=== PATIENT | male | born 1985 | race Caucasian/White ===

== ENCOUNTER 2016-11-13 05:05 | Emergency (ER) | payer OTHER ==
[~2016-11-13] VITALS: Ht 175.3 cm; Wt 92.0 kg
[~2016-11-13 05:05] MED LIST: HYDR-906 PO; PHEN-538 PO; TAMS-14 PO
[2016-11-13 05:09] VITALS: Ht 175.3 cm; Wt 92.0 kg
--- NOTE | 2016-11-13 06:30 | ERD ---
ER Documentation Chief Complaint Date/Time DATE: 11/13/16 TIME: 06:27 Chief Complaint RLQ ABDOMINAL/GROIN PAIN TODAY.NO N/V/D. SAYS RT TESTICLE HIGHER THAN USUAL HPI Patient is a 31-year-old male with past medical history of kidney stones who presents to the emergency department with right lower quadrant abdominal pain which started approximately 3 hours ago. Patient states that the pain awakened him from his sleep. Patient describes the pain to be sharp and constant. Patient states his current pain level is a 6 out of 10. Patient denies any nausea, vomiting, diarrhea, or fever. Patient does admit to some chills. Patient denies taking any medication for his current symptoms. Patient also states that he noticed that his right testicle is higher than usual. Patient states he noticed this yesterday. Patient states that he did have some pain yesterday however it is now resolved. Patient denies any swelling. Patient denies any penile discharge. Patient's last bowel movement was yesterday at 9 PM.Patient denies any pain with urination or blood in his urine. Patient denies any recent travel. No sick contacts. ROS All systems reviewed and are negative except as per history of present illness. Medications Home Meds Active Scripts Tamsulosin Hcl* (Flomax*) 0.4 Mg Cap.er.24h, 0.4 MG PO BID, #30 CAP Prov:NILDA MOORE PA-C 11/13/16 Ibuprofen* (Motrin*) 600 Mg Tab, 600 MG PO Q6, #30 TAB Prov:NILDA MOORE PA-C 11/13/16 Hydrocodone/Acetaminophen ([place] 5-325 Tablet) 1 Each Tablet, 1 TAB PO Q6H Y for PAIN, #10 TAB Prov:NILDA MOORE PA-C 11/13/16 Tamsulosin Hcl* (Flomax*) 0.4 Mg Cap.er.24h, 0.4 MG PO QPM, #30 CAP Prov:OMAR STEVENSON NP 05/04/16 Phenazopyridine Hcl* (Pyridium*) 200 Mg Tab, 200 MG PO TID Y for URINARY PAIN, # 6 TAB Prov:OMAR STEVENSON NP 05/04/16 Hydrocodone/Acetaminophen ([place] 5-325 Tablet) 1 Each Tablet, 1 TAB PO Q6H Y for PAIN, #20 TAB Prov:OMAR STEVENSON LONG LINES OPERATOR 05/04/16 Reported Medications [none] Unknown Strength No Conflict Check 05/04/16 Allergies Allergies: Coded Allergies: No Known Allergy (Unverified , 05/03/16) PMhx/Soc Medical and Surgical Hx: pt denies Medical Hx, pt denies Surgical Hx Hx Alcohol Use: Yes (occasionally) Hx Substance Use: No Hx Tobacco Use: No Smoking Status: Former smoker Physical Exam Vitals Vital Signs Date Time Temp Pulse Resp B/P Pulse Ox O2 Delivery O2 Flow Rate FiO2 11/13/16 05:09 96.6 78 16 166/91 99 Physical Exam GENERAL: Well-developed, well-nourished male. Appears in no acute distress. HEAD: Normocephalic, atraumatic. EYES: Pupils are equally reactive bilaterally. EOMs grossly intact. No conjunctival erythema. ENT: Moist mucous membranes. No uvula deviation. No kissing tonsils. NECK: Supple. No meningismus. Normal range of motion of the neck. LUNG: Clear to auscultation bilaterally. No rhonchi, wheezing, rales or coarse breath sounds. HEART: Regular rate and rhythm. No murmurs, rubs or gallops. ABDOMEN: No scars, ecchymosis or rashes noted. Soft and nondistended. Tender to palpation in the right lower quadrant. Positive bowel sounds in all four quadrants. No rebound tenderness, no guarding. (-) McBurney's point tenderness. No CVA tenderness. BACK: No midline tenderness. EXTREMITIES: Equal pulses bilaterally. No peripheral clubbing, cyanosis or edema. No unilateral leg swelling. NEUROLOGIC: Alert and oriented. Moving all four extremities without any difficulty. Normal speech. Steady gait. SKIN: Normal color. Warm and dry. No rashes or lesions. Result Diagram: 11/13/1662911/13/1630 Results 24 hrs Laboratory Tests Test 11/13/16 06:30 11/13/16 07:51 Alanine Aminotransferase (ALT/SGPT) 94IU/L Albumin 4.1g/dl Albumin/Globulin Ratio 1.41 Alkaline Phosphatase 97IU/L Anion Gap 15 Aspartate Amino Transf (AST/SGOT) 47IU/L Basophils # 0.110^3/ul Basophils % 0.8% Blood Urea Nitrogen 14mg/dl Calcium Level 8.8mg/dl Carbon Dioxide Level 28mmol/L Chloride Level 107mmol/L Creatinine 0.82mg/dl Direct Bilirubin 0.00mg/dl Eosinophils # 0.410^3/ul Eosinophils % 5.1% Globulin 2.90g/dl Glucose Level 88mg/dl Hematocrit 43.7% Hemoglobin 15.4g/dl Indirect Bilirubin 0.3mg/dl Lipase 107U/L Lymphocytes # 2.710^3/ul Lymphocytes % 35.7% Mean Corpuscular Hemoglobin 32.0pg Mean Corpuscular Hemoglobin Concent 35.2g/dl Mean Corpuscular Volume 90.7fl Mean Platelet Volume 8.7fl Monocytes # 0.610^3/ul Monocytes % 8.1% Neutrophils # 3.810^3/ul Neutrophils % 50.0% Nucleated Red Blood Cells # 0.010^3/ul Nucleated Red Blood Cells % 0.0/100WBC Platelet Count 32290^3/UL Potassium Level 4.0mmol/L Red Blood Count 4.8210^6/ul Red Cell Distribution Width 12.0% Sodium Level 146mmol/L Total Bilirubin 0.3mg/dl Total Protein 7.0g/dl White Blood Count 7.710^3/ul Bedside Urine Blood 3+ Bedside Urine Glucose (UA) Negative Bedside Urine Ketones (LAB) Negative Bedside Urine Leukocyte Esterase (L Negative Bedside Urine Nitrite (LAB) Negative Bedside Urine Protein (LAB) Trace Bedside Urine pH (LAB) 5.5 Procedures/MDM ED COURSE: The patient was stable throughout ED course. I kept the patient and/or family informed of laboratory and diagnostic imaging results throughout the ED course. . DIAGNOSTIC IMAGING: Read by radiologist. DIAGNOSTIC IMAGING REPORT Patient: DEVORA WATTS : 1985 Age: 31 Sex: M MR #: [id number] DOS: 11/13/16 0617 Ordering MD: NILDA MOORE PA-C Location: E Room/Bed: PROCEDURE: CT Abdomen and Pelvis without contrast. CLINICAL INDICATION: Abdominal pain. TECHNIQUE: Routine axial tomographic images of the abdomen and pelvis were obtained from the domes the diaphragm to the symphysis pubis. The patient was scanned withoutoral or intravenous contrast. Coronal and sagittal reformatted images were obtained from the axial source images. Images were reviewed on a high-resolution PACS workstation. The total exam CTDI equals 16.87 mGy and the total exam DLP equals 1093.30 mGy-cm. One or more of the following dose reduction techniques were used: Automated exposure control, adjustment of the mA and / or kV according to patient size, or use of iterative reconstruction technique. COMPARISON: CT abdomen and pelvis dated 05/04/2016 FINDINGS: The visualized portions of the lung bases are clear. Evaluation of the intra-abdominal solid organs is somewhat limited on this noncontrast examination. The liver appears normal in size. The liver parenchyma demonstrates diffuse hypoattenuation. There is no intra or extrahepatic biliary dilatation. The gallbladder is unremarkable by CT criteria. The spleen , pancreas, and adrenal glands are unremarkable. The kidneys are symmetric in size. There is mild right hydronephrosis and proximal hydroureter. There is a 3 mm calculus within the right mid ureter approximately 6 cm distal to the right UPJ at the level of the superior endplate of the L4 vertebral body. This measures 240 HU. There are multiple additional punctate bilateral renal calculi. The urinary bladder is grossly unremarkable. The bowel demonstrates normal course and caliber. There is no evidence of bowel obstruction. The appendix is normal in appearance. The pelvic organs are grossly unremarkable. No intraperitoneal free fluid, free air, or abscess is identified. No retroperitoneal, mesenteric, or inguinal lymphadenopathy is identified. The aorta is normal in caliber. The osseous structures are unremarkable. No significant subcutaneous soft tissue abnormalities are seen. IMPRESSION: 1. Obstructing 3 mm calculus within the right mid ureter, 6 cm distal to the right UPJ at the level of the superior endplate of the L4 vertebral body. This measures approximately 240 HU. 2. Multiple bilateral nonobstructing renal calculi. 3. Hepatic steatosis. RPTAT: HH .Barb Mas MD, Date Time Electronically viewed and signed by .Barb Mas MD, MD on 11/13/2016 07 :10 .G/ CC: NILDA MOORE PA-C DIAGNOSTIC IMAGING REPORT Patient: DEVORA WATTS : 1985 Age: 31 Sex: M MR #: [id number] DOS: 11/13/16 0617 Ordering MD: NILDA MOORE PA-C Location: [facility] Room/Bed: PROCEDURE: US Scrotum. CLINICAL INDICATION: Abdominal pain. TECHNIQUE: Multiple sonographic images of the scrotal region were obtained utilizing a linear array transducer with grayscale and color-flow and a Doppler imaging. The images were reviewed on a high-resolution PACS workstation. COMPARISON: No. FINDINGS: The right testicle is well visualized and has a normal echotexture. No focal areas of abnormal echogenicity are visualized. The right testicle measures measures 4.4 x 1.9 x 3.3 cm. cm. There is normal color-flow. The right epididymis is visualized and unremarkable in appearance. There is a 2 mm right epididymal cyst. There is normal color-flow. There is a small amount of fluid adjacent to the right testicle. The left testicle is well visualized and has a normal echotexture. No focal areas abnormal echogenicity are visualized. The left testicle measures measures 4.4 x 1.953 cm. cm. There is normal color-flow. The left epididymis is not visualized. The scrotal wall is unremarkable. No swelling or edema is seen. No other incidental abnormality is identified. There is a 2 mm right epididymal cyst. IMPRESSION: 1. 2 mm right epididymal cyst with small right hydrocele. 2. Normal left testicle. RPTAT:AAJJ Physician Olivia Date Time Electronically viewed and signed by Physician Olivia on 11/13/2016 07:53 JM/ CC: NILDA MOORE PA-C MEDICATIONS GIVEN: Patient was offered analgesics however he denied. Patient was advised to advise nursing staff or myself if his pain became worse and he required medication. MEDICAL DECISION MAKING: This is a 31-year-old male with past medical history of kidney stones who presents to the emergency department with right lower abdominal quadrant pain which started approximately 3 hours ago. Patient denies any fever, nausea, vomiting or diarrhea. Patient is also complaining of right-sided testicular pain and states that his right testicle is higher than usual. Vital signs were reviewed. Patient is afebrile. CBC showed no evidence of systemic infection or severe anemia. CMP showed no evidence of electrolyte abnormalities, severe acidosis, alkalosis, renal failure. AST 47, ALT 94. Lipase showed no evidence of acute pancreatitis. Urine dip showed no evidence of acute infection. Urine showed 3+ blood. CT abdomen and pelvis showed Obstructing 3 mm calculus within the right mid ureter, 6 cm distal to the right UPJ at the level of the superior endplate of the L4 vertebral body. This measures approximately 240 HU. Multiple bilateral nonobstructing renal calculi. Hepatic steatosis. Testicular ultrasound showed 2 mm right epididymal cyst with small right hydrocele. Normal left testicle. At this time, patient's presentation is most consistent with nephrolithiasis and right epididymal cyst. I have a much lower clinical concern for acute coronary syndrome, lower lobe pneumonia, DKA, bowel perforation, cholecystitis, choledocholithiasis, pancreatitis, splenic rupture, diverticulitis, appendicitis , constipation, testicular torsion, epididymitis. PRESCRIPTIONS: Ibuprofen, Flomax DISCHARGE: At this time, patient is stable for discharge and outpatient management. Patient provided with a copy of all imaging and blood work obtained today. Patient advised to drink plenty of H20. I have instructed the patient to follow- up with his/her primary care physician in 1-2 days. Patient may need to follow up with urologist for further management of his symptoms.I have instructed the patient to promptly return to the ER at any time for any new or worsening symptoms including increased pain, nausea, vomiting, diarrhea, fever, weakness or LOC. The patient and/or family expressed understanding of and agreement with this plan. All questions were answered. Home care instructions were provided. Departure Diagnosis: Primary Impression: Nephrolithiasis Additional Impression: Epididymal cyst Condition: Stable Patient Instructions: Kidney Stone W/ Colic Referrals: COMMUNITY CLINICS YOU HAVE RECEIVED A MEDICAL SCREENING EXAM AND THE RESULTS INDICATE THAT YOU DO NOT HAVE A CONDITION THAT REQUIRES URGENT TREATMENT IN THE EMERGENCY DEPARTMENT. FURTHER EVALUATION AND TREATMENT OF YOUR CONDITION CAN WAIT UNTIL YOU ARE SEEN IN YOUR DOCTORS OFFICE WITHIN THE NEXT 1-2 DAYS. IT IS YOUR RESPONSIBILITY TO MAKE AN APPOINTMENT FOR FOLOW-UP CARE. IF YOU HAVE A PRIMARY DOCTOR --you should call your primary doctor and schedule an appointment IF YOU DO NOT HAVE A PRIMARY DOCTOR YOU CAN CALL OUR PHYSICIAN REFERRAL HOTLINE AT IF YOU CAN NOT AFFORD TO SEE A PHYSICIAN YOU CAN CHOSE FROM THE FOLLOWING [facility] [address] [facility] [address] [facility] [address] [facility] [address] [facility] [address] [facility]. [facility] [address] [facility]. [facility] YOU HAVE RECEIVED A MEDICAL SCREENING EXAM AND THE RESULTS INDICATE THAT YOU DO NOT HAVE A CONDITION THAT REQUIRES URGENT TREATMENT IN THE EMERGENCY DEPARTMENT. FURTHER EVALUATION AND TREATMENT OF YOUR CONDITION CAN WAIT UNTIL YOU ARE SEEN IN YOUR DOCTORS OFFICE WITHIN THE NEXT 1-2 DAYS. IT IS YOUR RESPONSIBILITY TO MAKE AN APPOINTMENT FOR FOLOW-UP CARE. IF YOU HAVE A PRIMARY DOCTOR --you should call your primary doctor and schedule and appointment IF YOU DO NOT HAVE A PRIMARY DOCTOR YOU CAN CALL OUR PHYSICIAN REFERRAL HOTLINE AT . IF YOU CAN NOT AFFORD TO SEE A PHYSICIAN YOU CAN CHOSE FROM THE FOLLOWING [facility] INSTITUTIONS: [facility] [address] [place] [address] [facility] [address] [place] [address] [facility] [address] [place] [address] Additional Instructions: Call your primary care doctor TOMORROW for an appointment during the next 1-2 days.See the doctor sooner or return here if your condition worsens before your appointment time. NILDA MOORE PA-C Nov 13, 2016 06:30
[2016-11-13 06:39] LABS: ADD SCAN DIFF NO
[2016-11-13 06:44] LABS: BASOPHIL # 0.1 10^3/ul (0.0-0.1); BASOPHILS % 0.8 % (0.0-2.0); EOSINOPHILS # 0.4 10^3/ul (0.0-0.5); EOSINOPHILS % 5.1 % (0.0-7.0); HEMATOCRIT 43.7 % (42.0-52.0); HEMOGLOBIN 15.4 g/dl (14.0-18.0); LYMPHOCYTES # 2.7 10^3/ul (0.8-2.9); LYMPHOCYTES % 35.7 % (15.0-51.0); MEAN CORPUSCULAR HGB CONC 35.2 g/dl (32.0-37.0); MEAN CORPUSCULAR VOLUME 90.7 fl (82.0-101.0); MEAN PLATELET VOLUME 8.7 fl (7.4-10.4); MONOCYTE # 0.6 10^3/ul (0.3-0.9); MONOCYTES % 8.1 % (0.0-11.0); NEUTROPHIL # 3.8 10^3/ul (1.6-7.5); PLATELET COUNT 235 10^3/UL (140-415); RED BLOOD COUNT 4.82 10^6/ul (4.70-6.10); WHITE BLOOD COUNT 7.7 10^3/ul (4.8-10.8)
[2016-11-13 06:52] LABS: ALBUMIN 4.1 g/dl (3.3-4.9)
[2016-11-13 06:54] LABS: CREATININE 0.82 mg/dl (0.61-1.24)
[2016-11-13 06:55] LABS: ALBUMIN/GLOBULIN RATIO 1.41; BILIRUBIN,INDIRECT 0.3 mg/dl (0-1.1); BILIRUBIN,TOTAL 0.3 mg/dl (0.2-1.3); CALCIUM 8.8 mg/dl (8.4-10.2)
--- NOTE | 2016-11-13 07:10 | RADRPT ---
PROCEDURE: CT Abdomen and Pelvis without contrast. CLINICAL INDICATION: Abdominal pain. TECHNIQUE: Routine axial tomographic images of the abdomen and pelvis were obtained from the domes the diaphragm to the symphysis pubis. The patient was scanned withoutoral or intravenous contrast. Coronal and sagittal reformatted images were obtained from the axial source images. Images were re viewed on a high-resolution PACS workstation. The total exam CTDI equals 16.87 mGy and the total exa m DLP equals 1093.30 mGy-cm. One or more of the following dose reduction techniques were used: Aut omated exposure control, adjustment of the mA and / or kV according to patient size, or use of itera tive reconstruction technique. COMPARISON: CT abdomen and pelvis dated 05/04/2016 FINDINGS: The visualized portions of the lung bases are clear. Evaluation of the intra-abdominal solid or chuck is somewhat limited on this noncontrast examination. The liver appears normal in size. The li cornelio parenchyma demonstrates diffuse hypoattenuation. There is no intra or extrahepatic biliary dila tation. The gallbladder is unremarkable by CT criteria. The spleen, pancreas, and adrenal glands a re unremarkable. The kidneys are symmetric in size. There is mild right hydronephrosis and proximal hydroureter. Th ere is a 3 mm calculus within the right mid ureter approximately 6 cm distal to the right UPJ at the level of the superior endplate of the L4 vertebral body. This measures 240 HU. There are multiple a dditional punctate bilateral renal calculi. The urinary bladder is grossly unremarkable. The bowel demonstrates normal course and caliber. There is no evidence of bowel obstruction. The a ppendix is normal in appearance. The pelvic organs are grossly unremarkable. No intraperitoneal fr ee fluid, free air, or abscess is identified. No retroperitoneal, mesenteric, or inguinal lymphadeno andrea is identified. The aorta is normal in caliber. The osseous structures are unremarkable. No significant subcutaneous soft tissue abnormalities are seen. IMPRESSION: 1. Obstructing 3 mm calculus within the right mid ureter, 6 cm distal to the right UPJ at the level of the superior endplate of the L4 vertebral body. This measures approximately 240 HU. 2. Multiple bilateral nonobstructing renal calculi. 3. Hepatic steatosis. RPTAT: HH .Barb Mas MD, MD Date Time Electronically viewed and signed by .Barb Mas MD, MD on 11/13/2016 07:10 .G/
[2016-11-13 07:53] LABS: URINE BLOOD (Dip) POC 3+ (NEGATIVE)
--- NOTE | 2016-11-13 07:53 | RADRPT ---
PROCEDURE: US Scrotum. CLINICAL INDICATION: Abdominal pain. TECHNIQUE: Multiple sonographic images of the scrotal region were obtained utilizing a linear arra y transducer with grayscale and color-flow and a Doppler imaging. The images were reviewed on a high -resolution PACS workstation. COMPARISON: No. FINDINGS: The right testicle is well visualized and has a normal echotexture. No focal areas of abnormal echog enicity are visualized. The right testicle measures measures 4.4 x 1.9 x 3.3 cm. cm. There is normal color-flow. The right epididymis is visualized and unremarkable in appearance. There is a 2 mm righ t epididymal cyst. There is normal color-flow. There is a small amount of fluid adjacent to the rig ht testicle. The left testicle is well visualized and has a normal echotexture. No focal areas abnormal echogenic ity are visualized. The left testicle measures measures 4.4 x 1.953 cm. cm. There is normal color-fl ow. The left epididymis is not visualized. The scrotal wall is unremarkable. No swelling or edema is seen. No other incidental abnormality is identified. There is a 2 mm right epididymal cyst. IMPRESSION: 1. 2 mm right epididymal cyst with small right hydrocele. 2. Normal left testicle. RPTAT:AAJJ Physician Olivia Date Time Electronically viewed and signed by Physician Olivia on 11/13/2016 07:53 /
[2016-11-13] MEDS ORDERED: HYDR-906 PO (08:58)
[2016-11-13] MEDS ORDERED: IBUP-1542 PO (08:58)
[2016-11-13] MEDS ORDERED: TAMS-14 PO (08:58)
== END 2016-11-13 09:37 | disposition home or self-care (01) ==
LOC: FTE 05:05
DX: N20.0 Calculus of kidney (principal); N50.3 Cyst of epididymis; Z87.891 Personal history of nicotine dependence
CPT/HCPCS: 36415; 74176; 76870; 80053; 81003; 83690; 85025; Z7502

== ENCOUNTER 2017-01-29 10:02 | Emergency (ER) | payer OTHER ==
[~2017-01-29] VITALS: Ht 165.1 cm; Wt 91.5 kg
[~2017-01-29 10:02] MED LIST changes: +IBUP-1542 PO
[2017-01-29 10:05] VITALS: Ht 165.1 cm; Wt 91.5 kg
[2017-01-29] MEDS ORDERED: SOD CHLORIDE 0.9% 1,000 ML IV STA (10:43)
[2017-01-29] MEDS ORDERED: KETOROLAC 30 MG INJ IV STA (10:43)
[2017-01-29 11:05] LABS: ADD SCAN DIFF NO
[2017-01-29 11:07] LABS: BASOPHILS % 0.6 % (0.0-2.0); EOSINOPHILS # 0.3 10^3/ul (0.0-0.5); EOSINOPHILS % 3.6 % (0.0-7.0); HEMATOCRIT 44.5 % (42.0-52.0); HEMOGLOBIN 15.9 g/dl (14.0-18.0); LYMPHOCYTES # 2.4 10^3/ul (0.8-2.9); LYMPHOCYTES % 34.6 % (15.0-51.0); MEAN CORPUSCULAR HEMOGLOBIN 32.2 pg (29.0-33.0); MEAN CORPUSCULAR HGB CONC 35.7 g/dl (32.0-37.0); MEAN CORPUSCULAR VOLUME 90.1 fl (82.0-101.0); MEAN PLATELET VOLUME 8.5 fl (7.4-10.4); MONOCYTE # 0.5 10^3/ul (0.3-0.9); MONOCYTES % 6.4 % (0.0-11.0); NEUTROPHIL # 3.8 10^3/ul (1.6-7.5); NEUTROPHILS % 54.5 % (39.0-77.0); PLATELET COUNT 243 10^3/UL (140-415); RED BLOOD COUNT 4.94 10^6/ul (4.70-6.10); RED CELL DISTRIBUTION WIDTH 11.9 % (11.5-14.5)
[2017-01-29 11:24] LABS: ADD UMIC YES; URINE BILIRUBIN (Dip) 1+ (NEGATIVE); URINE BLOOD (Dip) 3+ (NEGATIVE); URINE COLOR DK. RED (YELLOW); URINE GLUCOSE (Dip) NEGATIVE (NEGATIVE); URINE KETONES (Dip) TRACE (NEGATIVE); URINE LEUKOCYTE ESTERASE (Dip) NEGATIVE (NEGATIVE); URINE NITRITE (Dip) POSITIVE (NEGATIVE); URINE TOTAL PROTEIN (Dip) 4+ (NEGATIVE); URINE UROBILINOGEN (Dip) 1.0 E.U./dL (0.1-1.0)
[2017-01-29 11:45] LABS: ICTOTEST NEGATIVE (NEGATIVE)
[2017-01-29 11:48] LABS: ALBUMIN 4.4 g/dl (3.3-4.9)
[2017-01-29 11:49] LABS: POTASSIUM 4.1 mmol/L (3.5-5.1)
[2017-01-29 11:51] LABS: BACTERIA,URINE FEW; URINE RBCS >200 /HPF (0)
--- NOTE | 2017-01-29 11:52 | RADRPT ---
PROCEDURE: CT Abdomen and Pelvis without contrast. CLINICAL INDICATION: History of renal stones, complains of left lower quadrant pain radiating to t he groin. Hematuria. TECHNIQUE: CT scan of the abdomen and pelvis without contrast was performed on a multidetector hig h-resolution CT scanner. The patient was scanned without intravenous contrast. Coronal and sagittal reformatted images were obtained from the axial source images. Images were reviewed on a high-resol [employer] PACS workstation. The total exam CTDI equals 20.04 mGy and the total exam DLP equals 1284.03 m Gy-cm. One or the following dose reduction techniques were used: -Automated exposure control. -Adjustment of the mA and/or KV according to patient's size. -Use of iterative reconstruction technique. COMPARISON: None. FINDINGS: Lung Bases: Unremarkable. GI:. Unremarkable. Liver: Liver is borderline enlarged with a decrease in attenuation consistent with diffuse steatosis . Gallbladder: Unremarkable. Pancreas: Unremarkable. Spleen: Unremarkablel Adrenals: Unremarkable. Kidneys: There is bilateral nephrolithiasis with mild pyelocaliectasis and ureterectasis on the left down to the level of the distal aspect of the left ureter where there is a 3 mm calculus and slight ly more distally a 5 x 3-mm calculus. Bladder: Unremarkable. Pelvic Organs: Unremarkable. Skeleton: Normal for age. Other: There is a small right inguinal hernia containing fat only. IMPRESSION: 1. Bilateral nephrolithiasis with mild obstructive uropathy on the left secondary to two partially o bstructing calculi in the distal left ureter. One measures 3 x 5 mm in the other measures 3 mm in d iameter. 2. Mild hepatomegaly with a diffuse attenuation throughout suggesting diffuse steatosis. 3. Normal appearing appendix visualized. 4. Small right inguinal hernia containing fat only. RPTAT: AACC Physician Kelton Date Time Electronically viewed and signed by Physician Kelton on 01/29/2017 11:51 KATHY/
--- NOTE | 2017-01-29 11:58 | ERD ---
ER Documentation Chief Complaint Date/Time DATE: 01/29/17 Chief Complaint Hematuria HPI The patient is a 31-year-old male who presents the Emergency Department with complaint of hematuria for the past week. He reports that approximately one week ago he developed left-sided flank pain intermittently radiates to the groin. It is associated with mild urinary frequency and increased hematuria over the past several days. He denies any dysuria, he urinary urgency, hesitancy. Denies fevers, sweats, chills, nausea or vomiting. Denies recent URI- type symptoms, cough, sore throat, neck pain, neck stiffness or new rashes. Denies chest pain, palpitations, shortness of breath or lower extremity swelling. Denies any testicular pain, swelling or discharge. The patient notes a history of prior kidney stones, and believes that his current symptoms may be secondary to a recurrent kidney stone. However, he reports more hematuria at this time, compared to that of his prior kidney stones. He rates his current pain as 4/10, though notes that it is waxing and waning in presentation, and can become as strong as 10/10 in intensity. He has not taken any medication for pain relief today. Despite his history, he has never seen a Urologist. No other complaints at this time. ROS All systems reviewed and are negative except as per history of present illness. Medications Home Meds Active Scripts Ciprofloxacin Hcl* (Ciprofloxacin Hcl*) 500 Mg Tablet, 500 MG PO BID for 7 Days , TAB Prov:SAPPHIRE NARAYAN PA-C 01/29/17 Tamsulosin Hcl* (Flomax*) 0.4 Mg Cap.er.24h, 0.4 MG PO QPM, #30 CAP Prov:SAPPHIRE NARAYAN PA-C 01/29/17 Hydrocodone/Acetaminophen ([place] 5-325 Tablet) 1 Each Tablet, 1 EACH PO Q6, #10 TAB Prov:SAPPHIRE NARAYAN PA-C 01/29/17 Ibuprofen* (Motrin*) 600 Mg Tab, 600 MG PO Q6, #30 TAB Prov:SAPPHIRE NARAYAN PA-C 01/29/17 Tamsulosin Hcl* (Flomax*) 0.4 Mg Cap.er.24h, 0.4 MG PO BID, #30 CAP Prov:NILDA MOORE PA-C 11/13/16 Ibuprofen* (Motrin*) 600 Mg Tab, 600 MG PO Q6, #30 TAB Prov:AZRA MOORETREE ACEVES 11/13/16 Hydrocodone/Acetaminophen ([place] 5-325 Tablet) 1 Each Tablet, 1 TAB PO Q6H Y for PAIN, #10 TAB Prov:AZRA MOORETREE ACEVES 11/13/16 Tamsulosin Hcl* (Flomax*) 0.4 Mg Cap.er.24h, 0.4 MG PO QPM, #30 CAP Prov:OMAR STEVENSON PREPARATOR 05/04/16 Phenazopyridine Hcl* (Pyridium*) 200 Mg Tab, 200 MG PO TID Y for URINARY PAIN, # 6 TAB Prov:OMAR STEVENSON PREPARATOR 05/04/16 Hydrocodone/Acetaminophen ([place] 5-325 Tablet) 1 Each Tablet, 1 TAB PO Q6H Y for PAIN, #20 TAB Prov:OMAR STEVENSON NP 05/04/16 Reported Medications [none] Unknown Strength No Conflict Check 05/04/16 Allergies Allergies: Coded Allergies: No Known Allergy (Unverified , 05/03/16) PMhx/Soc Hx Miscellaneous Medical Probl: Yes (KIDNEY STONES ) Hx Alcohol Use: Yes (occasionally) Hx Substance Use: No Hx Tobacco Use: No Physical Exam Vitals Vital Signs Date Time Temp Pulse Resp B/P Pulse Ox O2 Delivery O2 Flow Rate FiO2 01/29/17 10:05 98.6 76 20 134/93 98 Physical Exam GENERAL: Well-developed, well-nourished, in no acute distress HEENT: Head is normocephalic, atraumatic. No scleral pallor or icterus. Pupils equal, round and reactive to light. Conjunctiva pink. Moist mucous membranes. No pharyngeal erythema or exudates. Uvula is midline. NECK: Supple. No masses, no tenderness, no lymphadenopathy. Trachea midline. RESPIRATORY: Lungs are clear to auscultation bilaterally. Equal breath sounds. Normal expiratory effort. CARDIOVASCULAR: Regular rate and rhythm. S1 and S2 normal. GASTROINTESTINAL: Abdomen is soft, nontender, and nondistended. No guarding, no rebound tenderness. Normal bowel sounds. FLANK: No CVA tenderness, no mass or swelling. BACK: No midline tenderness. EXTREMITIES: No clubbing, cyanosis, or edema. Normal skin perfusion. Moving all extremities. No focal swelling or erythema. Distal pulses are palpable, 2+ bilaterally. Capillary refill is less than 2 seconds. NEUROLOGIC: The patient is alert, awake, and oriented x 3. No focal neurologic deficits. Motor normal in all extremities. Sensation grossly intact. INTEGUMENT: Skin is clean, dry and intact. No rashes, lesions or petechiae present. PSYCHIATRIC: Appropriate; Cooperative. Result Diagram: 01/29/17 1055 01/29/17 1055 Results 24 hrs Laboratory Tests Test 01/29/17 10:50 01/29/17 10:55 Urine Color DK. RED Urine Clarity CLEAR Urine pH 5.0 Urine Specific [place] 1.025 Urine Ketones TRACE Urine Nitrite POSITIVE Urine Bilirubin 1+ Urine Ictotest NEGATIVE Urine Urobilinogen 1.0 E.U./dL Urine Leukocyte Esterase NEGATIVE Urine Microscopic RBC >200/HPF Urine Microscopic WBC 0-2/HPF Urine Bacteria FEW Urine Hemoglobin 3+ Urine Glucose NEGATIVE% Urine Total Protein 4+ White Blood Count 7.010^3/ul Red Blood Count 4.9410^6/ul Hemoglobin 15.9g/dl Hematocrit 44.5% Mean Corpuscular Volume 90.1fl Mean Corpuscular Hemoglobin 32.2pg Mean Corpuscular Hemoglobin Concent 35.7g/dl Red Cell Distribution Width 11.9% Platelet Count 58599^3/UL Mean Platelet Volume 8.5fl Neutrophils % 54.5% Lymphocytes % 34.6% Monocytes % 6.4% Eosinophils % 3.6% Basophils % 0.6% Nucleated Red Blood Cells % 0.0/100WBC Neutrophils # 3.810^3/ul Lymphocytes # 2.410^3/ul Monocytes # 0.510^3/ul Eosinophils # 0.310^3/ul Basophils # 0.010^3/ul Nucleated Red Blood Cells # 0.010^3/ul Sodium Level 142mmol/L Potassium Level 4.1mmol/L Chloride Level 108mmol/L Carbon Dioxide Level 29mmol/L Anion Gap 9 Blood Urea Nitrogen 15mg/dl Creatinine 0.80mg/dl Glucose Level 97mg/dl Calcium Level 9.1mg/dl Total Bilirubin 0.3mg/dl Direct Bilirubin 0.00mg/dl Indirect Bilirubin 0.3mg/dl Aspartate Amino Transf (AST/SGOT) 50IU/L Alanine Aminotransferase (ALT/SGPT) 91IU/L Alkaline Phosphatase 110IU/L Total Protein 7.7g/dl Albumin 4.4g/dl Globulin 3.30g/dl Albumin/Globulin Ratio 1.33 Lipase 154U/L Current Medications Medications (Trade) Dose Ordered Sig/Yashira Route PRN Reason Start Time Stop Time Status Last Admin Dose Admin Sodium Chloride (NS) 1,000 ml @ 1,000 mls/hr Q1H STAT IV 01/29/17 10:43 01/29/17 11:42 DC 01/29/17 10:59 Ketorolac Tromethamine 30 mg 30 mg ONCE STAT IV 01/29/17 10:43 01/29/17 10:45 DC 01/29/17 10:59 Ceftriaxone Sodium (Rocephin) 50 ml @ 100 mls/hr ONCE ONCE IVPB 01/29/17 12:00 01/29/17 12:29 DC 01/29/17 12:02 Procedures/MDM The patient's case was reviewed and discussed with Dr. Julio, ED supervising physician, who agrees with the plan of care including labs, treatment and advanced imaging as appropriate. He recommends that the patient be given a dose of Rocephin 1 gram IV in the ED and then discharged home with rx Flomax, [place], Ibuprofen and Ciprofloxacin. DIAGNOSTIC TESTS AND INTERPRETATION: PROCEDURE: CT Abdomen and Pelvis without contrast. CLINICAL INDICATION: History of renal stones, complains of left lower quadrant pain radiating to the groin. Hematuria. TECHNIQUE: CT scan of the abdomen and pelvis without contrast was performed on a multidetector high-resolution CT scanner. The patient was scanned without intravenous contrast. Coronal and sagittal reformatted images were obtained from the axial source images. Images were reviewed on a high-resolution PACS workstation. The total exam CTDI equals 20.04 mGy and the total exam DLP equals 1284.03 mGy-cm. One or the following dose reduction techniques were used: -Automated exposure control. -Adjustment of the mA and/or KV according to patient's size. -Use of iterative reconstruction technique. COMPARISON: None. FINDINGS: Lung Bases: Unremarkable. GI:. Unremarkable. Liver: Liver is borderline enlarged with a decrease in attenuation consistent with diffuse steatosis. Gallbladder: Unremarkable. Pancreas: Unremarkable. Spleen: Unremarkablel Adrenals: Unremarkable. Kidneys: There is bilateral nephrolithiasis with mild pyelocaliectasis and ureterectasis on the left down to the level of the distal aspect of the left ureter where there is a 3 mm calculus and slightly more distally a 5 x 3-mm calculus. Bladder: Unremarkable. Pelvic Organs: Unremarkable. Skeleton: Normal for age. Other: There is a small right inguinal hernia containing fat only. IMPRESSION: 1. Bilateral nephrolithiasis with mild obstructive uropathy on the left secondary to two partially obstructing calculi in the distal left ureter. One measures 3 x 5 mm in the other measures 3 mm in diameter. 2. Mild hepatomegaly with a diffuse attenuation throughout suggesting diffuse steatosis. 3. Normal appearing appendix visualized. 4. Small right inguinal hernia containing fat only. Physician Kelton Date Time Electronically viewed and signed by Physician Kelton on 01/29/2017 11: 51 MEDICAL DECISION MAKING: This is a 31-year-old male presenting to the Emergency Department with complaint of left flank pain radiating to the groin with associated hematuria and urinary frequency. He had no lower abdominal tenderness to suggest appendicitis. Abdomen was soft, non-tender, non-distended , no indication of acute/surgical abdomen. No RUQ tenderness to suggest cholecystitis, choledocholithiasis. Differential diagnosis includes, but is not limited to, AAA, nephrolithiasis, cystitis, pyelonephritis, biliary colic, pancreatitis, appendicitis, aortic dissection, mesenteric ischemia, hernia, perforated viscous, diverticulitis, bowel obstruction, cancer, testicular torsion, fibroids, shingles, retroperitoneal abscess/ hematoma. CBC reveals no significant anemia. No significant electrolyte abnormalities noted to require medication replacement. Creatinine and BUN within normal limits, no prerenal azotemia or acute kidney injury. CT abdomen and pelvis reveals bilateral nephrolithiasis with mild obstructive uropathy on the left secondary to two partially obstructing calculi in the distal left ureter. One measures 3 x 5 mm in the other measures 3 mm in diameter. This is likely the cause of the patient' s symptoms. Urinalysis did reveal positive nitrites, indicating possible infection. Rocephin 1 gram IV administered. No evidence of pyelonephritis, no CVA tenderness, no vomiting, no fevers. However, will treat patient for ascending infection. 3+ urine hemoglobin with > 200 RBCs noted, consistent with CT findings. After rest and administration of fluids and medications, the patient reports no new complaints, and significantly decreased pain. At this time, the patient is in stable condition and therefore can be discharged home with prescriptions for Ciprofloxacin, [place], Ibuprofen and Flomax, and given strict return precautions for signs of deteriorating or worsening condition. The patient is advised to follow up with their primary care provider and a urologist within 1-2 days for reevaluation and further management, or return to the ER sooner for any worsening symptoms. I shared my medical decision making and plan with the patient at length and in great detail , and the patient verbally understands and agrees with the plan for further observation and care as an outpatient. At the time of discharge, all questions were answered. Departure Diagnosis: Primary Impression: Ureterolithiasis Additional Impressions: Left flank pain Urinary tract infection Urinary tract infection type: acute cystitis Hematuria presence: with hematuria Qualified Code: N30.01 - Acute cystitis with hematuria Ureteral colic Nephrolithiasis Condition: Stable Patient Instructions: Kidney Stone W/ Colic, Kidney Stone, Undescended (No Symptoms), Understanding Urinary Tract Infections (UTIs) Referrals: ERIC BRUCE MD, RICHARD MD Additional Instructions: Call your primary care doctor TOMORROW for an appointment during the next 1-2 days.See the doctor sooner or return here if your condition worsens before your appointment time. SAPPHIRE NARAYAN PA-C January 29, 2017 11:58
[2017-01-29] MEDS ORDERED: CEFTRIAXONE 1 GM/50 ML (PMX) 50 ML IVPB ONE (12:00)
[2017-01-29 12:01] LABS: BILIRUBIN,INDIRECT 0.3 mg/dl (0-1.1); BILIRUBIN,TOTAL 0.3 mg/dl (0.2-1.3); CREATININE 0.8 mg/dl (0.61-1.24)
[2017-01-29 12:02] LABS: ALBUMIN/GLOBULIN RATIO 1.33; CALCIUM 9.1 mg/dl (8.4-10.2); TOTAL PROTEIN 7.7 g/dl (6.1-8.1)
[2017-01-29] MEDS ORDERED: IBUP-1542 PO (12:27)
[2017-01-29] MEDS ORDERED: CIPR500T4 PO (12:28)
[2017-01-29] MEDS ORDERED: HYDR-906 PO (12:28)
[2017-01-29] MEDS ORDERED: TAMS-14 PO (12:28)
== END 2017-01-29 12:42 | disposition home or self-care (01) ==
LOC: FTE 10:02
DX: N20.2 Calculus of kidney with calculus of ureter (principal); R10.9 Unspecified abdominal pain; N30.01 Acute cystitis with hematuria
CPT/HCPCS: 36415; 74176; 80053; 81001; 83690; 85025; 96361; 96374; 96375; J0696; J1885; J7030; Z7502